=== PATIENT | female | born 1965 | race Caucasian/White ===

== ENCOUNTER 2016-09-14 10:26 | Emergency (ER) | payer BC, OTHER ==
[2016-09-14] MEDS ORDERED: Ketorolac 60 MG/2 ML SDV IM ONE (11:01)
--- NOTE | 2016-09-14 11:01 | EDM.PDOC ---
ED HPI Trauma - General Chief Complaint: Upper Extremity Injury/Pain Stated Complaint: FELT Time Seen by Provider: 09/14/16 10:35 - History of Present Illness INITIAL COMMENTS - FREE TEXT/NARRATIVE: HISTORY AND PHYSICAL: History of present illness: Patient is a healthy 51-year-old female who presents after sustaining a fall on some ice last evening landing on her left side impacting her elbow and her left ribs. Patient states she scratched her left forehead but did not pass out or black out and has had no nausea or vomiting headache neck or midline back pain. Patient complains of left lateral rib pain which is worse with movements and deep breaths as well as left elbow pain and slight wrist pain on the left. She has no lower extremity complaints no hip complaints no abdominal complaints no facial pain or swelling. She has no hand or finger pain and no proximal shoulder pain on the left. The patient says after the fall she just wanted to get some rest and she went to sleep and woke up and was more sore and came here. She also said that she has noticed blood in her urine and she was concerned about "internal bleeding". Patient has no dysuria frequency urgency or suprapubic discomfort Review of systems: As per history of present illness and below otherwise all systems reviewed and negative. Past medical history: As per history of present illness and as reviewed below otherwise noncontributory. Surgical history: As per history of present illness and as reviewed below otherwise noncontributory. Social history: No reported history of drug or alcohol abuse. Family history: As per history of present illness and as reviewed below otherwise noncontributory. Physical exam: General: Well-developed well-nourished female who is nontoxic and moves slowly due to the discomfort in her ribs and both sides of the note of any HEENT: Atraumatic, normocephalic, pupils reactive, negative for conjunctival pallor or scleral icterus, mucous membranes moist, throat clear, neck supple, nontender, trachea midline. There are some superficial scratches at her left forehead without any palpable bony deformities no tenderness no erythema no soft tissue swelling. There is no gross facial swelling appreciated and no tooth deformities. There are no midline step-offs tenderness defects of the cervical spine Lungs: Clear to auscultation, breath sounds equal bilaterally, chest with tenderness at the upper lateral aspect on the left side without ecchymosis erythema crepitus or deformities. Heart: S1S2, regular, negative for clicks, rubs, or JVD. Abdomen: Soft, nondistended, nontender. Negative for masses or hepatosplenomegaly. Negative for costovertebral tenderness. Pelvis: Stable nontender. No lateral hip tenderness Genitourinary: Deferred. Rectal: Deferred. Extremities: Atraumatic throughout with the exception of the olecranon on the left where there is some soft tissue swelling and a slight ecchymosis but no joint effusion or palpable bony deformities. Patient is able to range of motion at the elbow and has no distal discomfort or tenderness or proximal discomfort or tenderness. Patient does have a slight bit of stated discomfort at the anterior wrist on the left but there is no soft tissue swelling bony deformities defects or ecchymosis. The legs are, negative for cords or calf pain. Neurovascular unremarkable. Neuro: Awake, alert, oriented. Cranial nerves II through XII unremarkable. Cerebellum unremarkable. Motor and sensory unremarkable throughout. Exam nonfocal. Back there are no midline step-offs and as defects of the thoracic or lumbar spine no posterior rib tenderness and no CVA tenderness Diagnostics: X-ray left elbow and left ribs with chest x-ray UA Therapeutics: Toradol The UA results were discussed with Dr. Michel or trauma surgeon at 12:03 PM. She states that although the incidence is very low of renal injury with a minor trauma she recommends CT scan of the abdomen and pelvis to formally evaluate that. I discussed with the patient this need and will add CBC and CMP as well. CT scan results revealed no answer for the hematuria saw discussed with the patient that she would need to followup with urology and symptomatic care for her pain from the fall. Impression: Left rib/chest wall contusion, left elbow contusion, asymptomatic hematuria etiology unclear Definitive disposition and diagnosis as appropriate pending reevaluation and review of above. Allergies/ADRs: Allergies No Known Allergies Allergy (Verified 09/14/16 10:43) Home Medications: Ambulatory Orders . [No Known Home Meds] 09/14/16 [Confirmed 09/14/16] Review of Systems - Review of Systems Review Of Systems: ROS reveals no pertinent complaints other than HPI. Trauma Exam - Physical Exam Exam: See Below (See dictation) Course - Vital Signs Last Recorded V/S: Last Vital Signs Temp 36.5 C 09/14/16 10:43 Pulse 98 09/14/16 10:43 Resp 16 09/14/16 10:43 BP 154/106 H 09/14/16 10:43 Pulse Ox 98 09/14/16 10:43 - Orders/Labs/Meds Orders: Active Orders 24 hr Category Date Time Status Abdomen Pelvis w Cont [CT] Stat Exams 09/14/16 12:06 Taken Elbow Min 3V Lt [CR] Stat Exams 09/14/16 10:57 Taken Ribs 2V w Chest Lt [CR] Stat Exams 09/14/16 10:57 Taken Sodium Chloride 0.9% [Saline Flush] Med 09/14/16 12:04 Active 10 ml FLUSH ASDIRECTED PRN Sodium Chloride 0.9% [Saline Flush] Med 09/14/16 12:04 Active 2.5 ml FLUSH ASDIRECTED PRN Saline Lock Insert [OM.PC] Stat Oth 09/14/16 12:04 Ordered Medication Orders Sodium Chloride (Saline Flush) 10 ml FLUSH ASDIRECTED PRN PRN Reason: Keep Vein Open Last Admin: 09/14/16 12:15 Dose: 10 ml Sodium Chloride (Saline Flush) 2.5 ml FLUSH ASDIRECTED PRN PRN Reason: Keep Vein Open Last Admin: 09/14/16 12:15 Dose: 2.5 ml Labs: Laboratory Tests 09/14/16 09/14/16 09/14/16 Range/Units 11:28 12:32 12:32 WBC 5.37 (4.0-11.0) K/uL RBC 4.13 L (4.30-5.90) M/uL Hgb 12.9 (12.0-16.0) g/dL Hct 38.1 (36.0-46.0) % MCV 92.3 (80.0-98.0) fL MCH 31.2 (27.0-32.0) pg MCHC 33.9 (31.0-37.0) g/dL RDW Std Deviation 42.2 (28.0-62.0) fl RDW Coeff of Damian 12 (11.0-15.0) % Plt Count 224 (150-400) K/uL MPV 9.70 (7.40-12.00) fL Neut % (Auto) 59.1 (48.0-80.0) % Lymph % (Auto) 33.3 (16.0-40.0) % [place] % (Auto) 6.3 (0.0-15.0) % Eos % (Auto) 1.1 (0.0-7.0) % Baso % (Auto) 0.2 (0.0-1.5) % Neut # 3.2 (1.4-5.7) K/uL Lymph # 1.8 (0.6-2.4) K/uL [place] # 0.3 (0.0-0.8) K/uL Eos # 0.1 (0.0-0.7) K/uL Baso # 0.0 (0.0-0.1) K/uL Nucleated RBC % 0.0 /100WBC Nucleated RBCs # 0 K/uL Sodium 143 (136-146) mmol/L Potassium 3.7 (3.5-5.1) mmol/L Chloride 108 (98-110) mmol/L Carbon Dioxide 26 (21-31) mmol/L BUN 10 (6.0-23.0) mg/dL Creatinine 0.9 (0.6-1.5) mg/dL Est Cr Clr Drug Dosing 67.67 mL/min Estimated GFR (MDRD) > 60.0 ml/min Glucose 95 (60-110) mg/dL Calcium 8.7 L (8.8-10.8) mg/dL Total Bilirubin 0.3 (0.1-1.5) mg/dL AST 21 (5-40) IU/L ALT 10 (8-54) IU/L Alkaline Phosphatase 52 (40-150) Total Protein 6.4 (6.0-8.0) g/dL Albumin 3.9 (3.5-5.0) g/dL Globulin 2.5 (2.0-3.5) g/dL Albumin/Globulin Ratio 1.6 (1.3-2.8) Urine Color YELLOW Urine Appearance CLOUDY Urine pH 8.0 (5.0-8.0) Ur Specific [place] 1.015 (1.001-1.035) Urine Protein NEGATIVE (NEGATIVE) mg/dL Urine Glucose (UA) NEGATIVE (NEGATIVE) mg/dL Urine Ketones NEGATIVE (NEGATIVE) mg/dL Urine Occult Blood LARGE H (NEGATIVE) Urine Nitrite NEGATIVE (NEGATIVE) Urine Bilirubin NEGATIVE (NEGATIVE) Urine Urobilinogen 0.2 (<2.0) EU/dL Ur Leukocyte Esterase TRACE (NEGATIVE) Urine RBC TOO NUMBEROUS TO CT H (0-2/HPF) Urine WBC 0-1 (0-5/HPF) Ur Epithelial Cells FEW (NONE-FEW) Urine Bacteria FEW (NEGATIVE) Meds: Medications Generic Name Dose Route Start Last Admin Trade Name Freq PRN Reason Stop Dose Admin Sodium Chloride 10 ml 09/14/16 12:04 09/14/16 12:15 Saline Flush FLUSH 10 ml ASDIRECTED PRN Administration Keep Vein Open Sodium Chloride 2.5 ml 09/14/16 12:04 09/14/16 12:15 Saline Flush FLUSH 2.5 ml ASDIRECTED PRN Administration Keep Vein Open Discontinued Medications Generic Name Dose Route Start Last Admin Trade Name Freq PRN Reason Stop Dose Admin Iopamidol 80 ml 09/14/16 13:35 09/14/16 13:35 Isovue-370 (76%) IVPUSH 09/14/16 13:36 80 ml ONETIME STA Administration Ketorolac Tromethamine 60 mg 09/14/16 11:01 09/14/16 11:35 Toradol IM 09/14/16 11:02 60 mg ONETIME ONE Administration Departure - Departure Time of Disposition: 14:14 Disposition: Home, Self-Care 01 Condition: good Clinical Impression: Hematuria Contusion of elbow, left Qualifiers: Encounter type: initial encounter Qualified Code(s): S50.02XA - Contusion of left elbow, initial encounter Contusion of rib on left side Qualifiers: Encounter type: initial encounter Qualified Code(s): S20.212A - Contusion of left front wall of thorax, initial encounter Referrals: PCP,None [Primary Care Provider] - Forms: ED Department Discharge Additional Instructions: The following information is given to patients seen in the emergency department who are being discharged to home. This information is to outline your options for follow-up care. We provide all patients seen in our emergency department with a follow-up referral. The need for follow-up, as well as the timing and circumstances, are variable depending upon the specifics of your emergency department visit. If you don't have a primary care physician on staff, we will provide you with a referral. We always advise you to contact your personal physician following an emergency department visit to inform them of the circumstance of the visit and for follow-up with them and/or the need for any referrals to a consulting specialist. The emergency department will also refer you to a specialist when appropriate. This referral assures that you have the opportunity for followup care with a specialist. All of these measure are taken in an effort to provide you with optimal care, which includes your followup. Under all circumstances we always encourage you to contact your private physician who remains a resource for coordinating your care. When calling for followup care, please make the office aware that this follow-up is from your recent emergency room visit. If for any reason you are refused follow-up, please contact the [facility] emergency department at and ask to speak to the emergency department charge nurse. [facility] Primary care- Internal Medicine and Family [facility] [address] [place] [id number] [facility] Specialty Care-Urology [address] [place] [phone] Use ice to all areas of discomfort and use [id number] Tylenol/ibuprofen for pain. Expect aches and pains over the next 24-hour is to one week. Please push hydration and also connect with an [facility] appointment to see the urologist. Return to ER as needed and as discussed - My Orders Last 24 Hours: My Active Orders 09/14/16 10:57 Elbow Min 3V Lt [CR] Stat Ribs 2V w Chest Lt [CR] Stat 09/14/16 12:04 Sodium Chloride 0.9% [Saline Flush] 10 ml FLUSH ASDIRECTED PRN Sodium Chloride 0.9% [Saline Flush] 2.5 ml FLUSH ASDIRECTED PRN Saline Lock Insert [OM.PC] Stat 09/14/16 12:06 Abdomen Pelvis w Cont [CT] Stat - Assessment/Plan Last 24 Hours: My Active Orders 09/14/16 10:57 Elbow Min 3V Lt [CR] Stat Ribs 2V w Chest Lt [CR] Stat 09/14/16 12:04 Sodium Chloride 0.9% [Saline Flush] 10 ml FLUSH ASDIRECTED PRN Sodium Chloride 0.9% [Saline Flush] 2.5 ml FLUSH ASDIRECTED PRN Saline Lock Insert [OM.PC] Stat 09/14/16 12:06 Abdomen Pelvis w Cont [CT] Stat
[2016-09-14] MEDS ORDERED: Sodium Chloride 0.9% 2.5 ML Syringe FLUSH PRN (12:04)
[2016-09-14] MEDS ORDERED: Sodium Chloride 0.9% 10 ML Syringe FLUSH PRN (12:04)
[2016-09-14 13:00] LABS: CHLORIDE,CL 108 mmol/L (98-110); SODIUM,NA 143 mmol/L (136-146)
[2016-09-14] MEDS ORDERED: Iopamidol 755 Mg/ML 100 ML Bottle IVPUSH STA (13:35)
[2016-09-14 14:25] VITALS: BP 132/70
--- NOTE | 2016-09-16 16:44 | CR ---
EXAM DATE: 09/14/16 PATIENT'S AGE: 51 Patient: MIGUEL SY Facility: [place], [place] Site . Site : 1965 Study: XRay Extremity Left ELBOW [id number]/18/2017 11:30:21 AM Ordering Physician: Vale Alford Final Report: INDICATION: Fall with left elbow pain. TECHNIQUE: Three views left elbow. COMPARISON: None FINDINGS: Bones: Alignment is normal. No fractures or bone lesions. Joint spaces: Unremarkable. Soft tissues: Unremarkable. IMPRESSION: Negative. Dictated by Johnny Castañeda MD @ 09/14/2016 11:47:12 AM Dictated by: Johnny Castañeda MD @ 09/14/2016 11:47:16 (Electronic Signature) Report Signed by Proxy and Original Signed Document filed in the Medical Record. MTDD
--- NOTE | 2016-09-16 17:13 | CR ---
EXAM DATE: 09/14/16 PATIENT'S AGE: 51 Patient: MIGUEL SY Facility: [place], [place] Site . Site : 1965 Study: XRay Chest Left RIBS [id number]/18/2017 11:31:12 AM Ordering Physician: Vale Alford Final Report: INDICATION: PT STATES FELL ON ICE TODAY, PAIN ON LEFT SIDE-MIDDLE RIBS FINDINGS: A single PA chest x-ray shows a normal cardiac silhouette. The lungs show no focal pulmonary opacities. Sharp pleural margins. No pneumothorax. Three views of the left ribs show no evidence of a rib fracture. IMPRESSION: 1. No evidence of acute pulmonary abnormalities. 2. No rib fractures identified. Dictated by Marco Scott MD @ 09/14/2016 11:48:20 AM Dictated by: Marco Scott MD @ 09/14/2016 11:48:50 (Electronic Signature) Report Signed by Proxy and Original Signed Document filed in the Medical Record. MTDD
--- NOTE | 2016-09-16 17:19 | CT ---
EXAM DATE: 09/14/16 PATIENT'S AGE: 51 Patient: MIGUEL SY Facility: [place], [place] Site . Site : 1965 Study: CT Abdomen/Pelvis W CONT [id number]/18/2017 1:36:39 PM Ordering Physician: Vale Alford Final Report: HISTORY: Hematuria. Comparison: None. Technique : Axial images are obtained through the abdomen and pelvis following 80 cc of Isovue-370 intravenous contrast. Findings: Abdominal AA linear atelectasis or scarring in the lung bases. There are 2 hypoechoic masses within the liver that have somewhat peripheral globular enhancement suggestive of hemangiomas. The spleen, pancreas, adrenal glands and kidneys are within normal. No evidence for renal stone or hydronephrosis. The bowel is normal in caliber. Focal increased attenuation within the gallbladder lumen may represent stone or wall polyp. No biliary dilation. The abdominal aorta is normal in caliber. No ascites or lymphadenopathy. The bones are within normal. Impression: 1. No renal stones or hydronephrosis. No specific abnormality explain hematuria. Recommend urologic consultation. 2. Two masses within the liver suggestive of hemangiomas. This could be confirmed with CT or MRI for liver mass. 3. Possible gallbladder wall polyp. This could be followed up with ultrasound. Dictated by Aurelia Gregory MD @ Sep 14 2016 2:09PM (Electronic Signature) Report Signed by Proxy and Original Signed Document filed in the Medical Record. IVAN
== END 2016-09-14 14:24 | disposition home or self-care (01) ==
LOC: MW.ED 10:26
DX: S50.02XA Contusion of left elbow, initial encounter (principal); S20.212A Contusion of left front wall of thorax, initial encounter; R31.9 Hematuria, unspecified; W00.0XXA Fall on same level due to ice and snow, initial encounter
CPT/HCPCS: 36415; 71101; 73080; 74177; 80053; 81001; 85025; 96372; 99284; J1885; Q9967; 99283